=== PATIENT | male | born 1965 | race Caucasian/White ===

== ENCOUNTER 2024-02-12 07:32 | Outpatient (CLI) | payer OTHER ==
[2024-02-12 08:27] VITALS: PULSE 77; RESP 15; O2SAT 77
== END 2024-02-12 23:59 | disposition home or self-care (01) ==
LOC: RT 07:32
PROVIDERS: ATTEND Physician Assistant
DX: R06.09 Other forms of dyspnea (principal); I10 Essential (primary) hypertension
CPT/HCPCS: 71046; 94010; 94729; 94760; C1758

== ENCOUNTER 2024-03-11 08:36 | Outpatient (CLI) | payer OTHER | END 2024-03-11 23:59 | disposition home or self-care (01) | LOC: CARD DIAG 08:36 | PROVIDERS: ATTEND Physician Assistant | DX: I10 Essential (primary) hypertension (principal); R06.09 Other forms of dyspnea | CPT/HCPCS: 93306 ==